=== PATIENT | female | born 1935 | race Caucasian/White ===

== ENCOUNTER 2017-07-06 08:06 | Day surgery (SDC) | payer MEDICARE, OTHER ==
[2017-07-05 12:19] LABS: BASOPHILS # (AUTO) 0.1 X10'3 (0-0.2); BASOPHILS % (AUTO) 0.9 % (0-1); EOSINOPHILS # (AUTO) 0.2 X10'3 (0-0.9); EOSINOPHILS % (AUTO) 3.6 % (0-6); HEMATOCRIT 38.1 % (35.0-45.0); HEMOGLOBIN 13.1 g/dl (12.0-16.0); LYMPHOCYTES # (AUTO) 1.9 X10'3 (1.1-4.8); LYMPHOCYTES % (AUTO) 33.7 % (21-51); MEAN CORPUSCULAR HEMOGLOBIN 33.6 PG (27.0-31.0); MEAN CORPUSCULAR HGB CONC 34.4 % (33.0-36.5); MEAN CORPUSCULAR VOLUME 97.8 FL (78-98); MEAN PLATELET VOLUME 7.8 FL (7.4-10.4); MONOCYTES # (AUTO) 0.5 X10'3 (0-0.9); MONOCYTES % (AUTO) 8.6 % (2-12); NEUTROPHILS % (AUTO) 53.2 % (42-75); PLATELET COUNT 202 X10'3 (140-440); RED CELL DISTRIBUTION WIDTH 13.7 % (11.5-14.5); WHITE BLOOD COUNT 5.7 X10'3 (4.5-11.0)
[2017-07-05 12:29] LABS: ALBUMIN 3.8 G/DL (3.4-5.0); ANION GAP 9 (8-16); BLOOD UREA NITROGEN 22 MG/DL (7-18); CALCIUM 8.6 MG/DL (8.5-10.1); CHLORIDE 102 MMOL/L (99-107); CREATININE 1.05 MG/DL (0.40-0.90); GLUCOSE 75 MG/DL (70-104); POTASSIUM 4.6 MMOL/L (3.5-5.1); SODIUM 137 MMOL/L (135-145); TOTAL CARBON DIOXIDE 25.7 MMOL/L (24-32); eGFR 50 ML/MIN
[2017-07-05 12:43] LABS: INR 1.1 INR; PROTHROMBIN TIME 10.9 SECONDS (9.0-12.0)
[~2017-07-06] VITALS: Ht 165.1 cm; Wt 92.4 kg
[2017-07-06] VITALS (17 sets, daily range): BP systolic 126–168; BP diastolic 54–75
[~2017-07-06 08:06] MED LIST: ACET-75 PO; ASPI-529 PO; BUPR150T6 PO; CARV3.12 PO; ESCI10TA54 PO; FLEC100T2 PO; LISI1TAB11 PO; LORA0.5T PO; RIVA20TA PO
[2017-07-06] MEDS ORDERED: atropine 0.1mg/ml 10ml syringe IV ONE (08:35)
[2017-07-06] MEDS ORDERED: amiodarone in dextrose, iso-osm 150mg/100ml bag IV ONE (08:35)
[2017-07-06] MEDS ORDERED: CYAN100070 PO (08:35)
[2017-07-06] MEDS ORDERED: morphine 2 MG/ML inj. syringe IV ONE ×2 (08:35→08:55)
[2017-07-06] MEDS ORDERED: LISI1TAB9 PO (08:35)
[2017-07-06] MEDS ORDERED: normal saline 1000ml 1,000 ML IV SCH (08:35)
[2017-07-06] MEDS ORDERED: mega red (08:35)
[2017-07-06] MEDS ORDERED: AMIO200T57 PO (08:35)
[2017-07-06] MEDS ORDERED: diphenhydrAMINE 25mg capsule PO ONE (08:35)
[2017-07-06] MEDS ORDERED: LORazepam 0.5 MG tablet PO ONE (08:35)
[2017-07-06] MEDS ORDERED: morphine 8mg/ml inj. syringe IV ONE (08:55)
[2017-07-06] MEDS ORDERED: MIDAZolam 1mg/ml 10ml vial IV ONE (09:00)
[2017-07-06] MEDS ORDERED: MIDAZolam 5mg/ml 2ml vial IV ONE (09:20)
== END 2017-07-06 13:20 | disposition home or self-care (01) ==
LOC: SSTAY O 08:06
PROVIDERS: ATTEND Internal Medicine Cardiovascular Disease
DX: I48.91 Unspecified atrial fibrillation (principal); I10 Essential (primary) hypertension; G47.33 Obstructive sleep apnea (adult) (pediatric); J44.9 Chronic obstructive pulmonary disease, unspecified; E66.3 Overweight; Z88.2 Allergy status to sulfonamides; Z90.710 Acquired absence of both cervix and uterus; Z98.890 Other specified postprocedural states; Z93.3 Colostomy status; Z87.891 Personal history of nicotine dependence
CPT/HCPCS: 36415; 80048; 85025; 85610; 92960; 93005; J2250; J2270; J7030; Q0163; A4620; J0282; J0461

== ENCOUNTER 2017-07-31 14:13 | Emergency (ER) | payer MEDICARE, OTHER ==
[~2017-07-31] VITALS: Ht 165.1 cm; Wt 85.5 kg
[~2017-07-31 14:13] MED LIST changes: +AMIO200T57 PO; +CYAN100070 PO; -LISI1TAB11 PO; +LISI1TAB9 PO; +mega red
[2017-07-31 17:05] VITALS: BP 124/71
== END 2017-07-31 17:14 | disposition home or self-care (01) ==
LOC: ER 14:13
DX: M54.2 Cervicalgia (principal); R51 Headache; Z79.01 Long term (current) use of anticoagulants; Z88.2 Allergy status to sulfonamides; Z79.82 Long term (current) use of aspirin; Z79.899 Other long term (current) drug therapy; V49.88XA Car occupant (driver) (passenger) injured in other specified transport accidents, initial encounter; Y93.89 Activity, other specified; Y92.413 State road as the place of occurrence of the external cause; Y99.9 Unspecified external cause status
CPT/HCPCS: 70450; 72040; 99284

== ENCOUNTER 2017-09-07 12:28 | Outpatient (CLI) | payer MEDICARE, BC | END 2017-09-07 23:59 | disposition home or self-care (01) | LOC: RT 12:28 | PROVIDERS: ATTEND Internal Medicine Cardiovascular Disease | DX: Z51.81 Encounter for therapeutic drug level monitoring (principal); J90 Pleural effusion, not elsewhere classified; R06.09 Other forms of dyspnea; F17.200 Nicotine dependence, unspecified, uncomplicated; I10 Essential (primary) hypertension; Z79.899 Other long term (current) drug therapy; Z85.038 Personal history of other malignant neoplasm of large intestine | CPT/HCPCS: 71046; 85018; 94010; 94727; 94729 ==

== ENCOUNTER 2019-04-04 12:51 | Outpatient (CLI) | payer MEDICARE, OTHER ==
[~2019-04-04 12:51] MED LIST changes: +AMIO200T54 PO; -AMIO200T57 PO; +LISI1TAB32 PO; -LISI1TAB9 PO
[2019-04-04 13:16] LABS: TOTAL HEMOGLOBIN 13.6 G/dl (12.0-16.0)
== END 2019-04-04 23:59 | disposition home or self-care (01) ==
LOC: RT 12:51
PROVIDERS: ATTEND Internal Medicine Cardiovascular Disease
DX: J44.9 Chronic obstructive pulmonary disease, unspecified (principal); R59.0 Localized enlarged lymph nodes; I10 Essential (primary) hypertension; Z79.899 Other long term (current) drug therapy; Z87.891 Personal history of nicotine dependence
CPT/HCPCS: 71046; 85018; 94010; 94727; 94729

== ENCOUNTER 2019-05-18 05:41 | Day surgery (SDC) | payer MEDICARE, OTHER ==
[2019-05-18] VITALS (26 sets, daily range): BP systolic 148–197; BP diastolic 56–135
[~2019-05-18] VITALS: Ht 162.6 cm; Wt 89.0 kg
[2019-05-18] MEDS ORDERED: morphine 10mg/ml inj. IM ONE (06:20)
[2019-05-18] MEDS ORDERED: CHOL400T14 PO (06:45)
[2019-05-18] MEDS ORDERED: SELE200T25 PO (06:45)
[2019-05-18] MEDS ORDERED: LISI-600 PO (06:45)
[2019-05-18] MEDS ORDERED: CYAN500T63 PO (06:46)
[2019-05-18 06:49] LABS: EOSINOPHILS # (AUTO) 0.2 X10'3 (0-0.9); EOSINOPHILS % (AUTO) 4.6 % (0-6); HEMATOCRIT 34.1 % (35.0-45.0); HEMOGLOBIN 11.6 g/dl (12.0-16.0); LYMPHOCYTES # (AUTO) 1.3 X10'3 (1.1-4.8); LYMPHOCYTES % (AUTO) 26.6 % (21-51); MEAN CORPUSCULAR HEMOGLOBIN 33.5 PG (27.0-31.0); MEAN CORPUSCULAR HGB CONC 34.1 g/dL (33.0-36.5); MEAN CORPUSCULAR VOLUME 98.3 FL (78-98); MEAN PLATELET VOLUME 7.7 FL (7.4-10.4); MONOCYTES # (AUTO) 0.5 X10'3 (0-0.9); MONOCYTES % (AUTO) 9.7 % (2-12); NEUTROPHILS # (AUTO) 2.8 X10'3 (1.8-7.7); NEUTROPHILS % (AUTO) 58.1 % (42-75); PLATELET COUNT 259 X10'3 (140-440); RED BLOOD COUNT 3.47 X10'6 (4.20-5.60); RED CELL DISTRIBUTION WIDTH 12.9 % (11.5-14.5); WHITE BLOOD COUNT 4.9 X10'3 (4.5-11.0)
[2019-05-18] MEDS ORDERED: MIDAZolam 1mg/ml 10ml vial IV ONE (07:25)
[2019-05-18] MEDS ORDERED: MIDAZolam 5mg/ml 2ml vial IV ONE (07:25)
[2019-05-18] MEDS ORDERED: LIDOCAINE 4% (40MG/ML) topical solution 50ml **BRONCH ONLY ONE (07:38)
[2019-05-18] MEDS ORDERED: lidocaine 2% viscous 15 ML cup ***bronch room only MM ONE (07:38)
[2019-05-18] MEDS ORDERED: phenylephrine 1% Nasal spray (extra-strength) 15 ML bottle **bronch room NS ONE (07:38)
== END 2019-05-18 13:10 | disposition home or self-care (01) ==
LOC: GI LAB 05:41
PROVIDERS: ATTEND Internal Medicine Pulmonary Disease
DX: R91.8 Other nonspecific abnormal finding of lung field (principal); C34.01 Malignant neoplasm of right main bronchus; I10 Essential (primary) hypertension; E78.00 Pure hypercholesterolemia, unspecified; I48.0 Paroxysmal atrial fibrillation; Z90.710 Acquired absence of both cervix and uterus; Z98.890 Other specified postprocedural states; Z90.49 Acquired absence of other specified parts of digestive tract; Z88.2 Allergy status to sulfonamides; Z88.8 Allergy status to other drugs, medicaments and biological substances; Z87.891 Personal history of nicotine dependence
CPT/HCPCS: 31629; 36415; 82378; 85025; 94640; 94760; J2250; J2270; 31622; 31628; 76000; 76499; 88108; 88173; 88305

== ENCOUNTER 2019-09-24 16:34 | Emergency (ER) | payer MEDICARE, OTHER ==
[~2019-09-24] VITALS: Ht 162.6 cm; Wt 82.0 kg
[~2019-09-24 16:34] MED LIST changes: -ACET-75 PO; -AMIO200T54 PO; +AMIO200T62 PO; +CHOL400T14 PO; -CYAN100070 PO; +CYAN500T63 PO; -ESCI10TA54 PO; -FLEC100T2 PO; +LISI-600 PO; -LISI1TAB32 PO; -LORA0.5T PO; +SELE200T25 PO
--- NOTE | 2019-09-24 16:45 | NUR ---
pt daughter in laws contact information: Ju Chahal [phone]
[2019-09-24] MEDS ORDERED: iohexol 350MG/ML 100ml bottle IV ONE (18:43)
[2019-09-24 18:46] LABS: BASOPHILS % (AUTO) 0.5 % (0-1); EOSINOPHILS % (AUTO) 0.4 % (0-6); HEMATOCRIT 32.5 % (35.0-45.0); HEMOGLOBIN 10.6 g/dl (12.0-16.0); LYMPHOCYTES # (AUTO) 0.3 X10'3 (1.1-4.8); LYMPHOCYTES % (AUTO) 7.1 % (21-51); MEAN CORPUSCULAR HGB CONC 32.7 g/dL (33.0-36.5); MEAN CORPUSCULAR VOLUME 97.9 FL (78-98); MEAN PLATELET VOLUME 7.6 FL (7.4-10.4); MONOCYTES # (AUTO) 0.5 X10'3 (0-0.9); MONOCYTES % (AUTO) 10.9 % (2-12); NEUTROPHILS # (AUTO) 3.8 X10'3 (1.8-7.7); NEUTROPHILS % (AUTO) 81.1 % (42-75); PLATELET COUNT 262 X10'3 (140-440); RED BLOOD COUNT 3.32 X10'6 (4.20-5.60); WHITE BLOOD COUNT 4.7 X10'3 (4.5-11.0)
[2019-09-24 18:54] LABS: PARTIAL THROMBOPLASTIN TIME 37 SECONDS (22-32)
[2019-09-24 18:56] LABS: ALANINE AMINOTRANSFERASE 17 U/L (12-78); ALBUMIN 2.5 G/DL (3.4-5.0); ALBUMIN/GLOBULIN RATIO 0.6 (1.1-1.5); ALKALINE PHOSPHATASE 67 IU/L (46-116); ANION GAP 10 (8-16); ASPARTATE AMINO TRANSFERASE 24 U/L (10-37); BILIRUBIN,TOTAL 0.7 MG/DL (0.1-1.0); BLOOD UREA NITROGEN 15 MG/DL (7-18); BUN/CREATININE RATIO 19.2 (6.6-38.0); CALCIUM 8.9 MG/DL (8.5-10.1); CHLORIDE 102 MMOL/L (99-107); CREATININE 0.78 MG/DL (0.40-0.90); GLUCOSE 101 MG/DL (70-104); LIPASE 88 U/L (73-393); POTASSIUM 3.4 MMOL/L (3.5-5.1); SODIUM 140 MMOL/L (135-145); TOTAL CARBON DIOXIDE 28.5 MMOL/L (24-32); eGFR 70 ML/MIN
[2019-09-24 20:52] VITALS: BP 159/77
== END 2019-09-24 20:55 | disposition home or self-care (01) ==
LOC: ER 16:35
DX: R06.02 Shortness of breath (principal); Z20.828 Contact with and (suspected) exposure to other viral communicable diseases; I48.91 Unspecified atrial fibrillation; R05 Cough; R53.1 Weakness; Z88.2 Allergy status to sulfonamides; Z88.8 Allergy status to other drugs, medicaments and biological substances; Z79.82 Long term (current) use of aspirin; Z79.01 Long term (current) use of anticoagulants; Z79.899 Other long term (current) drug therapy
CPT/HCPCS: 36415; 71275; 74177; 80053; 83690; 84484; 85025; 85610; 85730; 87635; 93005; 99285; Q9967

== ENCOUNTER 2020-05-06 05:52 | Day surgery (SDC) | payer MEDICARE, OTHER ==
[2020-05-05 12:43] LABS: BASOPHILS % (AUTO) 0.5 % (0-1); EOSINOPHILS % (AUTO) 0.5 % (0-6); HEMATOCRIT 35.6 % (35.0-45.0); HEMOGLOBIN 12.2 g/dl (12.0-16.0); LYMPHOCYTES # (AUTO) 1.1 X10'3 (1.1-4.8); LYMPHOCYTES % (AUTO) 24.9 % (21-51); MEAN CORPUSCULAR HEMOGLOBIN 35.3 PG (27.0-31.0); MEAN CORPUSCULAR HGB CONC 34.2 g/dL (33.0-36.5); MEAN PLATELET VOLUME 7.6 FL (7.4-10.4); MONOCYTES # (AUTO) 0.5 X10'3 (0-0.9); MONOCYTES % (AUTO) 10.6 % (2-12); NEUTROPHILS # (AUTO) 2.9 X10'3 (1.8-7.7); NEUTROPHILS % (AUTO) 63.5 % (42-75); PLATELET COUNT 225 X10'3 (140-440); RED BLOOD COUNT 3.46 X10'6 (4.20-5.60); RED CELL DISTRIBUTION WIDTH 14.2 % (11.5-14.5); WHITE BLOOD COUNT 4.6 X10'3 (4.5-11.0)
[2020-05-05 12:52] LABS: ALBUMIN 3.8 G/DL (3.4-5.0); ANION GAP 10 (8-16); BLOOD UREA NITROGEN 27 MG/DL (7-18); BUN/CREATININE RATIO 24.8 (6.6-38.0); CALCIUM 9.3 MG/DL (8.5-10.1); CHLORIDE 108 MMOL/L (99-107); CREATININE 1.09 MG/DL (0.40-0.90); GLUCOSE 100 MG/DL (70-104); PARTIAL THROMBOPLASTIN TIME 22 SECONDS (22-32); SODIUM 145 MMOL/L (135-145); TOTAL CARBON DIOXIDE 27.1 MMOL/L (24-32); eGFR 48 ML/MIN
[~2020-05-06] VITALS: Ht 165.1 cm; Wt 78.1 kg
[2020-05-06] VITALS (11 sets, daily range): BP systolic 133–215; BP diastolic 45–83
[~2020-05-06 05:52] MED LIST changes: -CYAN500T63 PO; +CYAN500T64 PO
[2020-05-06] MEDS ORDERED: ceFAZolin 2gm in dextrose, iso 50 ML IV ONE (06:25)
[2020-05-06] MEDS ORDERED: ONDA4TAB6 PO (06:59)
[2020-05-06] MEDS: normal saline 1000ml 1,000 ML IV SCH ×2 (07:03→11:04)
[2020-05-06] MEDS ORDERED: midazolam 2 mg/2 ml injection ONE ×2 (07:18→08:33)
[2020-05-06] MEDS ORDERED: LIDOcaine 1% W/epiNEPHrine 1:100,000 20ml vial ONE (07:18)
[2020-05-06] MEDS ORDERED: fentaNYL/PF 50MCG/1 ML 2ML syringe ONE ×2 (07:18→08:33)
[2020-05-06] MEDS ORDERED: ceFAZolin 1000mg inj ONE (07:18)
[2020-05-06] MEDS ORDERED: diphenhydrAMINE 50 mg/ml inj ONE (08:28)
[2020-05-06] MEDS ORDERED: vancomycin/NS 1 GM ADD-VANTAGE 250 ML X 1 DOSE IV ONE (11:00)
--- NOTE | 2020-05-06 11:26 | NUR ---
Problems reprioritized. Patient report given, questions answered & plan of care reviewed with Alie TRIVEDI.
== END 2020-05-06 16:00 | disposition home or self-care (01) ==
LOC: SSTAY O 05:52
PROVIDERS: ATTEND Internal Medicine Cardiovascular Disease
DX: I49.5 Sick sinus syndrome (principal); I44.30 Unspecified atrioventricular block; I10 Essential (primary) hypertension; E78.5 Hyperlipidemia, unspecified; I48.0 Paroxysmal atrial fibrillation; Z79.82 Long term (current) use of aspirin; Z79.899 Other long term (current) drug therapy
CPT/HCPCS: 33208; 36415; 71046; 80048; 85025; 85610; 85730; 93005; 99152; 99153; C1785; C1894; C1898; J0690; J1200; J2250; J3010; J3370; J7030; A4565; A4620; A6449

== ENCOUNTER 2020-11-18 09:08 | Outpatient (CLI) | payer MEDICARE, OTHER ==
[~2020-11-18] VITALS: Ht 160 cm; Wt 80.5 kg
[~2020-11-18 09:08] MED LIST changes: +BUPR150T23 PO; -BUPR150T6 PO; -CARV3.12 PO; -CYAN500T64 PO; +CYAN500T71 PO; -LISI-600 PO; +ONDA4TAB6 PO; -SELE200T25 PO
[2020-11-18 10:48] VITALS: BP 151/62
[2020-11-18 10:59] VITALS: BP 157/55
[2020-11-18 11:00] VITALS: BP 151/50
[2020-11-18] MEDS ORDERED: nitroGLYCERIN 0.4mg SUBLingual tab SL PRN (11:00)
[2020-11-18] MEDS ORDERED: metoprolol tartrate 1mg/ml inj IV PRN (11:00)
[2020-11-18] MEDS ORDERED: aminophylline 250mg/10ml inj. IV PRN (11:00)
[2020-11-18] MEDS ORDERED: normal saline 500ml IV soln 500 ML IV ONE (11:00)
[2020-11-18] MEDS ORDERED: regadenoson 0.4mg/5ml syringe IV ONE (11:00)
[2020-11-18 11:01] VITALS: BP 154/57
[2020-11-18 11:02] VITALS: BP 151/56
[2020-11-18 11:03] VITALS: BP 160/51
== END 2020-11-18 23:59 | disposition home or self-care (01) ==
LOC: RAD 09:08
PROVIDERS: ATTEND Internal Medicine Cardiovascular Disease
DX: I48.0 Paroxysmal atrial fibrillation (principal)
CPT/HCPCS: 78452; 93017; A9500; J0280; J2785; J7040

== ENCOUNTER → 2020-12-17 | Day surgery (SDC) | payer MEDICARE, OTHER ==
[2020-12-10 17:06] LABS: BASOPHILS % (AUTO) 0.7 % (0-1); EOSINOPHILS # (AUTO) 0.3 X10'3 (0-0.9); LYMPHOCYTES # (AUTO) 1.3 X10'3 (1.1-4.8); LYMPHOCYTES % (AUTO) 24.7 % (21-51); MEAN CORPUSCULAR HEMOGLOBIN 34.8 PG (27.0-31.0); MEAN CORPUSCULAR HGB CONC 34.1 g/dL (33.0-36.5); MEAN CORPUSCULAR VOLUME 102.1 FL (78-98); MEAN PLATELET VOLUME 7.4 FL (7.4-10.4); MONOCYTES # (AUTO) 0.5 X10'3 (0-0.9); NEUTROPHILS # (AUTO) 3.2 X10'3 (1.8-7.7); NEUTROPHILS % (AUTO) 60.6 % (42-75); PRE OP HEMATOCRIT 33.9 % (35.0-45.0); PRE OP HEMOGLOBIN 11.6 g/dL (12.0-16.0); PRE OP PLATELET COUNT 208 X10'3 (140-440); RED BLOOD COUNT 3.32 X10'6 (4.20-5.60); RED CELL DISTRIBUTION WIDTH 13.9 % (11.5-14.5)
[2020-12-10 17:11] LABS: CLARITY,URINE SLIGHTLY CLOUDY (Clear); COLOR,URINE YELLOW (Yellow); GLUCOSE, URINE NEGATIVE (Neg); KETONES,URINE 15 mg/dl (Neg); LEUKOCYTE ESTERASE ,URINE TRACE (Neg); NITRITES, URINE NEGATIVE (Neg); OCCULT BLOOD,URINE NEGATIVE (Neg); PROTEIN,URINE NEGATIVE (Neg)
[2020-12-10 17:15] LABS: UA COLLECTION TYPE CLN CATCH MIDSTREAM
[2020-12-10 17:18] LABS: PRE OP PROTIME 10.4 SECONDS (9.0-12.0)
[2020-12-10 17:20] LABS: ALBUMIN 3.5 G/DL (3.4-5.0); ALKALINE PHOSPHATASE 43 IU/L (46-116); BLOOD UREA NITROGEN 22 MG/DL (7-18); BUN/CREATININE RATIO 14.3 (6.6-38.0); CALCIUM 8.3 MG/DL (8.5-10.1); CHLORIDE 109 MMOL/L (99-107); CREATININE 1.54 MG/DL (0.40-0.90); PRE OP ALT 22 U/L (30-65); PRE OP ANION GAP 7 (8-16); PRE OP AST 17 U/L (10-37); PRE OP BILIRUB, TOTAL 0.3 MG/DL (0.0-1.0); PRE OP GLUCOSE 95 MG/DL (70-104); PRE OP POTASSIUM 4.6 MMOL/L (3.4-5.1); PRE OP SODIUM 145 MMOL/L (135-145); TOTAL CARBON DIOXIDE 29.1 MMOL/L (24-32); TOTAL PROTEIN 6.9 G/DL (6.4-8.2); eGFR 32 ML/MIN
[2020-12-10 17:21] LABS: HYALINE CASTS 0-3 /LPF (NEGATIVE); MUCUS STRANDS FEW /LPF (Neg); SQUAMOUS EPITHELIAL CELL,UR MODERATE /LPF (FEW)
[2020-12-10 17:22] LABS: BACTERIA,URINE 1+ /HPF (Neg); RBC,URINE 0-2 /HPF (0-2); WBC,URINE 0-4 /HPF (0-4)
[2020-12-17] VITALS (13 sets, daily range): BP systolic 130–172; BP diastolic 55–89
[~2020-12-17] VITALS: Ht 160 cm; Wt 81.8 kg
[~2020-12-17] MED LIST changes: +ASCO500C17 PO; -ASPI-529 PO; +BUPIVAcaine 0.5% inj/PF 30 ML ONE; +CARV6.253 PO; +DOCUMENT DATE & TIME OF BETA-BLOCKER PO ONE; +HYDROcodone/acetaminophen 5mg/325mg tablet PO ONE; +LIDOcaine 2% (20mg/ml) 5ml vial ONE; +LISI10TA27 PO; +LORA-269 PO; -ONDA4TAB6 PO; +VIRTUSSIN PO; +cefazolin/dext.iso 2gm/100ml IV ONE; +dexamethasone sod phosphate 4mg/ml inj. ONE; +famotidine 20mg tablet PO ONE; +fentaNYL/PF 50MCG/1 ML 2ML syringe ONE; +hydrALAZINE 20mg/ml inj. IV PRN; +morphine 2 MG/ML inj. syringe IV PRN; +ondansetron/PF 4mg/2ml inj IV PRN; +ondansetron/PF 4mg/2ml inj ONE; +propofol inj 20 ML IV ONE; +ringers solution, lacted 1,000 ML IV SCH; +sevoflurane 250ml liquid IH ONE
[2020-12-17 11:33] LABS: PRE OP PARTIAL THROMB. TIME 23 SECONDS (22-32)
--- NOTE | 2020-12-17 15:14 | NUR ---
Received from OR via [facility], accompanied by Anesthesiologist DR TRUJILLO and report given by Anesthesiologist. PT AWAKE, DENIES PAIN, IS SLIGHTLY ANXIOUS AND TALKATIVE, LEFT NECK INCISION W/DERMABOND AND MEDICAL TAPE COVERING CDI, RIGHT LOWER ABDOMEN W/INCISION W/DERMABOND, TAGADERM AND MEDICAL TAPE CDI, LEFT HIP W/INCISION W/DERMABOND, TAGADERM AND MEDICAL TAPE COVERING CDI. Addendum: 12/17/20 at 1619 by Wilma Jonas RN Amended: Links added.
[2020-12-17] MEDS: morphine 2 MG/ML inj. syringe IV PRN ×2 (15:39→16:22)
--- NOTE | 2020-12-17 17:24 | NUR ---
PT UP AND ABLE TO AMBULATE SAFELY, VOIDED, TOLERATES PO FLUIDS, PAIN TOLERABLE. D/C INSTRUCTIONS GIVEN AND GONE OVER W/PT WHO VERBALIZED UNDERSTANDING. PT D/CD TO HOME VIA W/C TO PRIVATE VEHICLE W/O INCIDENT. Addendum: 12/17/20 at 1751 by Wilma Jonas RN Amended: Links added.
== END | disposition home or self-care (01) ==
LOC: SSTAY O 08:59
PROVIDERS: ATTEND Surgery
DX: C76.52 Malignant neoplasm of left lower limb (principal); C76.2 Malignant neoplasm of abdomen; D23.4 Other benign neoplasm of skin of scalp and neck; L53.8 Other specified erythematous conditions; I48.20 Chronic atrial fibrillation, unspecified; Z79.01 Long term (current) use of anticoagulants; Z79.899 Other long term (current) drug therapy; Z87.891 Personal history of nicotine dependence; Z98.890 Other specified postprocedural states; Z85.038 Personal history of other malignant neoplasm of large intestine; F41.9 Anxiety disorder, unspecified; E78.5 Hyperlipidemia, unspecified; E66.9 Obesity, unspecified; Z82.49 Family history of ischemic heart disease and other diseases of the circulatory system; Z96.651 Presence of right artificial knee joint; Z88.2 Allergy status to sulfonamides
CPT/HCPCS: 11421; 11606; 12034; 12041; 36415; 71046; 80053; 81001; 82948; 85025; 85610; 85730; 87077; 87088; 87186; 88341; J1100; J2001; J2270; J2405; J2704; J3010; Z7506; Z7508; Z7512; 88304; 88307; 88342; A4215; A4618; A6258; A7000; J7120

== ENCOUNTER 2021-03-25 11:37 | Day surgery (SDC) | payer MEDICARE, OTHER ==
[2021-03-20 12:00] LABS: EOSINOPHILS # (AUTO) 0.1 X10'3 (0-0.9); EOSINOPHILS % (AUTO) 3.1 % (0-6); LYMPHOCYTES % (AUTO) 29.2 % (21-51); MEAN CORPUSCULAR HEMOGLOBIN 33.5 PG (27.0-31.0); MEAN CORPUSCULAR HGB CONC 33.2 g/dL (33.0-36.5); MEAN CORPUSCULAR VOLUME 100.8 FL (78-98); MONOCYTES # (AUTO) 0.4 X10'3 (0-0.9); NEUTROPHILS # (AUTO) 1.9 X10'3 (1.8-7.7); NEUTROPHILS % (AUTO) 54.7 % (42-75); PRE OP HEMATOCRIT 33.6 % (35.0-45.0); PRE OP HEMOGLOBIN 11.2 g/dL (12.0-16.0); PRE OP PLATELET COUNT 224 X10'3 (140-440); RED BLOOD COUNT 3.33 X10'6 (4.20-5.60); RED CELL DISTRIBUTION WIDTH 13.4 % (11.5-14.5)
[2021-03-20 12:09] LABS: PARTIAL THROMBOPLASTIN TIME 26 SECONDS (22-32)
[2021-03-20 12:11] LABS: ALBUMIN 3.6 G/DL (3.4-5.0); ALBUMIN/GLOBULIN RATIO 0.9 (1.1-1.5); ALKALINE PHOSPHATASE 49 IU/L (46-116); BLOOD UREA NITROGEN 15 MG/DL (7-18); BUN/CREATININE RATIO 13.8 (6.6-38.0); CHLORIDE 105 MMOL/L (99-107); CREATININE 1.09 MG/DL (0.40-0.90); PRE OP ALT 20 U/L (30-65); PRE OP ANION GAP 8 (8-16); PRE OP AST 22 U/L (10-37); PRE OP BILIRUB, TOTAL 0.5 MG/DL (0.0-1.0); PRE OP GLUCOSE 99 MG/DL (70-104); PRE OP POTASSIUM 4.1 MMOL/L (3.4-5.1); PRE OP SODIUM 139 MMOL/L (135-145); TOTAL CARBON DIOXIDE 26.5 MMOL/L (24-32); TOTAL PROTEIN 7.5 G/DL (6.4-8.2); eGFR 48 ML/MIN
[~2021-03-25] VITALS: Ht 162.6 cm; Wt 81.8 kg
[~2021-03-25 11:37] MED LIST changes: -ASCO500C17 PO; -BUPIVAcaine 0.5% inj/PF 30 ML ONE; -DOCUMENT DATE & TIME OF BETA-BLOCKER PO ONE; -HYDROcodone/acetaminophen 5mg/325mg tablet PO ONE; -LIDOcaine 2% (20mg/ml) 5ml vial ONE; -LORA-269 PO; -VIRTUSSIN PO; -cefazolin/dext.iso 2gm/100ml IV ONE; +cefazolin/dext.iso 2gm/50ml 50 ML IV ONE; -dexamethasone sod phosphate 4mg/ml inj. ONE; -fentaNYL/PF 50MCG/1 ML 2ML syringe ONE; -hydrALAZINE 20mg/ml inj. IV PRN; -mega red; -morphine 2 MG/ML inj. syringe IV PRN; -ondansetron/PF 4mg/2ml inj IV PRN; -ondansetron/PF 4mg/2ml inj ONE; -propofol inj 20 ML IV ONE; -sevoflurane 250ml liquid IH ONE
[2021-03-25 12:45] VITALS: BP 181/82
[2021-03-25 13:08] LABS: CLARITY,URINE CLEAR (Clear); COLOR,URINE YELLOW (Yellow); GLUCOSE, URINE NEGATIVE (Neg); KETONES,URINE NEGATIVE (Neg); LEUKOCYTE ESTERASE ,URINE NEGATIVE (Neg); NITRITES, URINE NEGATIVE (Neg); OCCULT BLOOD,URINE NEGATIVE (Neg); PH,URINE 6.5 (4.8-8.0); PROTEIN,URINE NEGATIVE (Neg); UA COLLECTION TYPE VOIDED; UROBILINOGEN,URINE 0.2 E.U/dL (0.2-1.0)
[2021-03-25] MEDS ORDERED: BUPIVAcaine/PF 2.5 mg/ml (0.25%) 30ml vial ONE (15:04)
[2021-03-25] MEDS ORDERED: LIDOCAINE 1%/EPI 1:100,000 inj. 10 ML multi-dose vial ONE (15:04)
[2021-03-25] MEDS ORDERED: morphine 2 MG/ML inj. syringe IV PRN (16:15)
[2021-03-25] MEDS ORDERED: ondansetron/PF 4mg/2ml inj IV PRN (16:15)
[2021-03-25] MEDS ORDERED: ringers solution, lacted 1,000 ML IV SCH (16:15)
[2021-03-25] MEDS ORDERED: morphine 4 MG/ML inj SYRINge IV PRN (16:15)
[2021-03-25] MEDS ORDERED: hydrALAZINE 20mg/ml inj. IV PRN (16:15)
[2021-03-25] MEDS ORDERED: labetalol 20mg/4ml (5mg/ml) syringe IV PRN (16:15)
[2021-03-25] MEDS ORDERED: fentaNYL/PF 50MCG/1 ML 2ML syringe IV PRN ×2 (16:15)
[2021-03-25] MEDS ORDERED: midazolam 1 mg/ML 2ml injection ONE (16:24)
[2021-03-25] MEDS ORDERED: fentaNYL/PF 50MCG/1 ML 2ML syringe ONE ×2 (16:24→17:01)
[2021-03-25] MEDS ORDERED: ketamine 50mg/5ml syringe ONE (16:25)
[2021-03-25] MEDS ORDERED: propofol inj 20 ML IV ONE (16:33)
[2021-03-25] MEDS ORDERED: LIDOcaine 1%/PF 5ML 10 MG/ML VIAL ONE (16:33)
[2021-03-25 17:17] VITALS: BP 161/75
--- NOTE | 2021-03-25 17:17 | NUR ---
ASSUME CARE PT AWAKE ALERT ON RA SAT 96% DENIES PAIN, IV TO R AC 20G PATIENT INTACT IVF INFUSING WITHOUT DIFF, DRESSING TO RIGHT LOWER QUAD OF THE ABD CDI, CONT TO MONITOR. Addendum: 03/25/21 at 1733 by Pepper Nazario RN Amended: Links added.
[2021-03-25 17:30] VITALS: BP 144/68
--- NOTE | 2021-03-25 17:33 | NUR ---
AWAKE SITTING UP IN BED DENIES PAIN VSS ALISSON POS NO OTHER CHANGES Addendum: 03/25/21 at 1734 by Pepper Nazario RN Amended: Links added.
--- NOTE | 2021-03-25 18:00 | NUR ---
PT AWAKE DENIES PAIN VSS NO DISTRESS ALISSON POS MEETS CRITERIA TO GO HOME RIDE CALLED DC INSTR GIVEN NO ?'S OR CONCERNS. Addendum: 03/25/21 at 1823 by Pepper Nazario RN Amended: Links added.
== END 2021-03-25 18:17 | disposition home or self-care (01) ==
LOC: PAS 11:37
PROVIDERS: ATTEND Surgery
DX: D49.2 Neoplasm of unspecified behavior of bone, soft tissue, and skin (principal); C79.89 Secondary malignant neoplasm of other specified sites; F41.9 Anxiety disorder, unspecified; I48.91 Unspecified atrial fibrillation; I10 Essential (primary) hypertension; E78.5 Hyperlipidemia, unspecified; F32.9 Major depressive disorder, single episode, unspecified; E66.9 Obesity, unspecified; Z68.31 Body mass index [BMI] 31.0-31.9, adult; Z96.651 Presence of right artificial knee joint; Z95.0 Presence of cardiac pacemaker; Z87.891 Personal history of nicotine dependence; Z20.822 Contact with and (suspected) exposure to COVID-19; Z79.01 Long term (current) use of anticoagulants; Z79.899 Other long term (current) drug therapy; Z88.5 Allergy status to narcotic agent; Z88.2 Allergy status to sulfonamides; Z91.09 Other allergy status, other than to drugs and biological substances; Z85.038 Personal history of other malignant neoplasm of large intestine; Z85.118 Personal history of other malignant neoplasm of bronchus and lung; Z90.49 Acquired absence of other specified parts of digestive tract; Z90.710 Acquired absence of both cervix and uterus; Z98.890 Other specified postprocedural states
CPT/HCPCS: 22903; 36415; 80053; 81003; 82948; 85025; 85610; 85730; J2250; J2704; J3010; J3490; U0003; U0005; Z7506; Z7512; 88305; A4615; A4618; A7000; J7120

== ENCOUNTER 2021-07-01 05:28 | Day surgery (SDC) | payer MEDICARE, OTHER ==
[2021-06-18 16:34] LABS: BASOPHILS % (AUTO) 0.3 % (0-1); EOSINOPHILS # (AUTO) 0.1 X10'3 (0-0.9); EOSINOPHILS % (AUTO) 1.3 % (0-6); LYMPHOCYTES # (AUTO) 0.9 X10'3 (1.1-4.8); LYMPHOCYTES % (AUTO) 22.4 % (21-51); MEAN CORPUSCULAR HEMOGLOBIN 33.2 PG (27.0-31.0); MEAN CORPUSCULAR HGB CONC 33.5 g/dL (33.0-36.5); MONOCYTES # (AUTO) 0.4 X10'3 (0-0.9); MONOCYTES % (AUTO) 9.5 % (2-12); NEUTROPHILS # (AUTO) 2.6 X10'3 (1.8-7.7); NEUTROPHILS % (AUTO) 66.5 % (42-75); PRE OP HEMATOCRIT 29.9 % (35.0-45.0); PRE OP PLATELET COUNT 186 X10'3 (140-440); RED BLOOD COUNT 3.02 X10'6 (4.20-5.60); RED CELL DISTRIBUTION WIDTH 14.9 % (11.5-14.5)
[2021-06-18 17:01] LABS: ALBUMIN 3.2 G/DL (3.4-5.0); ALKALINE PHOSPHATASE 44 IU/L (46-116); BLOOD UREA NITROGEN 14 MG/DL (7-18); BUN/CREATININE RATIO 17.1 (6.6-38.0); CALCIUM 8.4 MG/DL (8.5-10.1); CHLORIDE 107 MMOL/L (99-107); CREATININE 0.82 MG/DL (0.40-0.90); PRE OP ALT 20 U/L (30-65); PRE OP ANION GAP 10 (8-16); PRE OP AST 25 U/L (10-37); PRE OP BILIRUB, TOTAL 0.3 MG/DL (0.0-1.0); PRE OP GLUCOSE 109 MG/DL (70-104); PRE OP POTASSIUM 4.1 MMOL/L (3.4-5.1); PRE OP SODIUM 144 MMOL/L (135-145); TOTAL CARBON DIOXIDE 27.3 MMOL/L (24-32); TOTAL PROTEIN 6.5 G/DL (6.4-8.2); eGFR 66 ML/MIN
[2021-07-01] VITALS (13 sets, daily range): BP systolic 134–185; BP diastolic 59–90
[~2021-07-01] VITALS: Ht 162.6 cm; Wt 84.2 kg
[~2021-07-01 05:28] MED LIST changes: +ASPI-611 PO; +BUPR-317 PO; -BUPR150T23 PO; +ESCI-8 PO; +LEVO50TA8 PO; +LISI5TAB22 PO; -cefazolin/dext.iso 2gm/50ml 50 ML IV ONE; -famotidine 20mg tablet PO ONE
[2021-07-01] MEDS ORDERED: cefazolin/dext.iso 2gm/50ml IV ONE (05:30)
[2021-07-01] MEDS ORDERED: famotidine 20mg tablet PO ONE (05:30)
[2021-07-01] MEDS ORDERED: DOCUMENT DATE & TIME OF BETA-BLOCKER PO ONE (05:30)
[2021-07-01] MEDS ORDERED: BUPIVAcaine 0.5% inj/PF 30 ML ONE (06:54)
[2021-07-01] MEDS ORDERED: midazolam 1 mg/ML 2ml injection ONE (07:31)
[2021-07-01] MEDS ORDERED: fentaNYL/PF 50MCG/1 ML 2ML syringe ONE (07:31)
[2021-07-01] MEDS ORDERED: propofol inj 20 ML IV ONE (07:32)
[2021-07-01] MEDS ORDERED: morphine 4 MG/ML inj SYRINge IV PRN (07:35)
[2021-07-01] MEDS ORDERED: ringers solution, lacted 1,000 ML IV SCH (07:35)
[2021-07-01] MEDS ORDERED: morphine 2 MG/ML inj. syringe IV PRN (07:35)
[2021-07-01] MEDS ORDERED: proCHLORperazine 10 MG/2 ml inj IV PRN (07:35)
[2021-07-01] MEDS ORDERED: meperidine/PF 25mg/ml syringe IV PRN ×3 (07:35)
[2021-07-01] MEDS ORDERED: ondansetron/PF 4mg/2ml inj IV PRN (07:35)
[2021-07-01] MEDS ORDERED: LIDOcaine 1%/PF 5ML 10 MG/ML VIAL ONE (07:38)
[2021-07-01] MEDS ORDERED: sevoflurane 250ml liquid IH ONE (07:38)
[2021-07-01 08:04] LABS: CLARITY,URINE CLOUDY (Clear); COLOR,URINE YELLOW (Yellow); GLUCOSE, URINE NEGATIVE (Neg); KETONES,URINE TRACE mg/dl (Neg); LEUKOCYTE ESTERASE ,URINE TRACE (Neg); NITRITES, URINE NEGATIVE (Neg); OCCULT BLOOD,URINE NEGATIVE (Neg); PH,URINE 5.5 (4.8-8.0); PROTEIN,URINE NEGATIVE (Neg); UROBILINOGEN,URINE 0.2 E.U/dL (0.2-1.0)
[2021-07-01 08:05] LABS: UA COLLECTION TYPE CLN CATCH MIDSTREAM
[2021-07-01] MEDS ORDERED: ondansetron/PF 4mg/2ml inj ONE (08:06)
[2021-07-01] MEDS ORDERED: dexamethasone sod phosphate 4mg/ml inj. ONE (08:06)
[2021-07-01 08:08] LABS: BACTERIA,URINE 2+ /HPF (Neg); HYALINE CASTS 0-3 /LPF (NEGATIVE); MUCUS STRANDS MANY /LPF (Neg); RBC,URINE NONE SEEN /HPF (0-2); SQUAMOUS EPITHELIAL CELL,UR MANY /LPF (FEW)
[2021-07-01] MEDS ORDERED: BUPIVAcaine 0.5% inj/PF 30 ml vial IJ ONE (09:14)
[2021-07-01] MEDS ORDERED: acetaminophen 1,000mg/100ml IV 100 ML IV ONE (09:20)
--- NOTE | 2021-07-01 09:34 | NUR ---
Received from OR via [facility], accompanied by Anesthesiologist SHANAE and report given by Anesthesiolgist. 10 LITER MASK, 2 GRANT DRAINS SEROUS SANGUNEOUS BLOODY, 3 ISLAND DRESSING SPOTTY - WILL CONTINUE TO REASSESS, 20 G LEFT HAND, 1 GRAM TYLENOL, IV FLUIDS LR 100ML/HR, VSS Addendum: 07/01/21 at 0967 by Emily Royal RN Amended: Links added.
[2021-07-01] MEDS ORDERED: enalaprilat dihydrate 2.5mg/2ml vial IV PRN (10:35)
--- NOTE | 2021-07-01 11:14 | NUR ---
ALL DISCHARGE CRITERIA HAS BEEN MET. VSS, PAIN AT A TOLERABLE LEVEL, VOIDING AND ABLE TO SAFELY AMBULATE AND TRANSFER SELF. IV TAKEN OUT WITHOUT ANY COMPLICATIONS. ALL DISCHARGE INSTRUCTIONS COVERED WITH PATIENT AND ALL QUESTIONS ANSWERED. PATIENT TAKEN OUT VIA WHEELCHAIR TO PERSONAL VEHICLE WHERE FAMILY/FRIEND DROVE PATIENT HOME. SPOKE TO DAUGHTER ANTWAN SHIKHA ABOUT GRANT DRAINS. PROVIDED TRIANGLE FOR DRAINS AND IS FOR BREATHING EXERCISE. Addendum: 07/01/21 at 1133 by Emily Royal RN Amended: Links added.
== END 2021-07-01 11:14 | disposition home or self-care (01) ==
LOC: PAS 05:28
PROVIDERS: ATTEND Surgery
DX: C79.2 Secondary malignant neoplasm of skin (principal); I10 Essential (primary) hypertension; F41.9 Anxiety disorder, unspecified; I48.20 Chronic atrial fibrillation, unspecified; E78.5 Hyperlipidemia, unspecified; E66.9 Obesity, unspecified; Z68.31 Body mass index [BMI] 31.0-31.9, adult; J44.9 Chronic obstructive pulmonary disease, unspecified; F32.A Depression, unspecified; Z96.651 Presence of right artificial knee joint; Z87.891 Personal history of nicotine dependence; Z79.899 Other long term (current) drug therapy; Z88.5 Allergy status to narcotic agent; Z88.2 Allergy status to sulfonamides; Z85.118 Personal history of other malignant neoplasm of bronchus and lung; Z95.0 Presence of cardiac pacemaker; Z85.038 Personal history of other malignant neoplasm of large intestine; Z98.890 Other specified postprocedural states; Z90.49 Acquired absence of other specified parts of digestive tract; Z90.710 Acquired absence of both cervix and uterus; Z20.822 Contact with and (suspected) exposure to COVID-19; Z82.49 Family history of ischemic heart disease and other diseases of the circulatory system
CPT/HCPCS: 11604; 11606; 36415; 80053; 81001; 82948; 85025; 88341; 88342; 93005; J0131; J0690; J1100; J2250; J2270; J2405; J2704; J3010; J3490; J7030; J7120; S0020; U0003; U0005; Z7506; Z7508; Z7512; 88305; 88307; 88333; A4618; A7000

== ENCOUNTER 2021-10-28 11:03 | Day surgery (SDC) | payer MEDICARE, OTHER ==
[2021-10-27 17:17] LABS: BASOPHILS % (AUTO) 0.7 % (0-1); EOSINOPHILS # (AUTO) 0.3 X10'3 (0-0.9); EOSINOPHILS % (AUTO) 4.1 % (0-6); LYMPHOCYTES # (AUTO) 0.8 X10'3 (1.1-4.8); LYMPHOCYTES % (AUTO) 13.1 % (21-51); MEAN CORPUSCULAR HEMOGLOBIN 31.1 PG (27.0-31.0); MEAN CORPUSCULAR HGB CONC 32.1 g/dL (33.0-36.5); MEAN CORPUSCULAR VOLUME 96.8 FL (78-98); MEAN PLATELET VOLUME 7.4 FL (7.4-10.4); MONOCYTES # (AUTO) 0.5 X10'3 (0-0.9); MONOCYTES % (AUTO) 7.7 % (2-12); NEUTROPHILS # (AUTO) 4.8 X10'3 (1.8-7.7); NEUTROPHILS % (AUTO) 74.4 % (42-75); PRE OP HEMATOCRIT 29.6 % (35.0-45.0); PRE OP PLATELET COUNT 325 X10'3 (140-440); RED BLOOD COUNT 3.06 X10'6 (4.20-5.60); RED CELL DISTRIBUTION WIDTH 16.1 % (11.5-14.5)
[2021-10-27 17:19] LABS: PRE OP HEMOGLOBIN 9.5 g/dL (12.0-16.0)
[2021-10-27 17:44] LABS: ALBUMIN 2.2 G/DL (3.4-5.0); ALBUMIN/GLOBULIN RATIO 0.5 (1.1-1.5); ALKALINE PHOSPHATASE 54 IU/L (46-116); BLOOD UREA NITROGEN 14 MG/DL (7-18); BUN/CREATININE RATIO 14.6 (6.6-38.0); CALCIUM 8.2 MG/DL (8.5-10.1); CHLORIDE 105 MMOL/L (99-107); CREATININE 0.96 MG/DL (0.40-0.90); PRE OP ALT 15 U/L (30-65); PRE OP ANION GAP 8 (8-16); PRE OP AST 35 U/L (10-37); PRE OP BILIRUB, TOTAL 0.5 MG/DL (0.0-1.0); PRE OP GLUCOSE 88 MG/DL (70-104); PRE OP POTASSIUM 4.1 MMOL/L (3.4-5.1); PRE OP SODIUM 141 MMOL/L (135-145); TOTAL CARBON DIOXIDE 28.3 MMOL/L (24-32); TOTAL PROTEIN 6.5 G/DL (6.4-8.2); eGFR 55 ML/MIN
[2021-10-28] VITALS (8 sets, daily range): BP systolic 131–178; BP diastolic 47–72
[~2021-10-28] VITALS: Ht 162.6 cm; Wt 83.0 kg
[~2021-10-28 11:03] MED LIST changes: -CHOL400T14 PO; +HYDR-3964 PO; -LEVO50TA8 PO; +LEVO75TA7 PO; -LISI5TAB22 PO; +ceFAZolin inj. 2,000 MG in dextrose 5%-water 100 ML IV ONE; +famotidine 20mg tablet PO ONE
[2021-10-28] MEDS ORDERED: LIDOcaine 1% W/epiNEPHrine 1:100,000 20ml vial ONE ×2 (12:12→12:53)
[2021-10-28] MEDS ORDERED: fentaNYL/PF 50MCG/1 ML 2ML syringe ONE (12:37)
[2021-10-28] MEDS ORDERED: midazolam 1 mg/ML 2ml injection ONE (12:38)
[2021-10-28] MEDS ORDERED: ketamine 50mg/5ml syringe ONE (12:40)
[2021-10-28] MEDS ORDERED: LIDOcaine 1% 30ml preserv. free vial ONE (12:49)
[2021-10-28] MEDS ORDERED: propofol inj 20 ML IV ONE (12:58)
--- NOTE | 2021-10-28 13:09 | NUR ---
Received from OR via [facility] , accompanied by Anesthesiologist: DR TRUJILLO and report given by Anesthesiolgist. VSS AND PACED. 20G IN LEFT WRIST. ABD DRESSING ACROSS FULL ABDOMEN. ON ROOM AIR BUT DESSATTING. ADDED CANNULA AT 2LITERS. SATTING AT 98% Addendum: 10/28/21 at 1333 by Emily Royal RN Amended: Links added.
[2021-10-28] MEDS ORDERED: morphine 2 MG/ML inj. syringe IV PRN (13:20)
[2021-10-28] MEDS ORDERED: ondansetron/PF 4mg/2ml inj IV PRN (13:20)
[2021-10-28] MEDS ORDERED: ringers solution, lacted 1,000 ML IV SCH (13:20)
[2021-10-28] MEDS ORDERED: hydrALAZINE 20mg/ml inj. IV PRN (14:05)
--- NOTE | 2021-10-28 14:19 | NUR ---
PATIENT MEETS DISCHARGE CRITERIA. VSS. PATIENT STATES NO PAIN. WENT OVER DISCHARGE INSTRUCTIONS WITH PATIENT AND GAVE THEM TO HER SON TO ALSO READ.
== END 2021-10-28 15:33 | disposition home or self-care (01) ==
LOC: PRE-OP 11:03
PROVIDERS: ATTEND Surgery
DX: R19.09 Other intra-abdominal and pelvic swelling, mass and lump (principal); C79.2 Secondary malignant neoplasm of skin; F41.9 Anxiety disorder, unspecified; I48.91 Unspecified atrial fibrillation; E78.5 Hyperlipidemia, unspecified; I10 Essential (primary) hypertension; F32.A Depression, unspecified; E66.9 Obesity, unspecified; Z68.31 Body mass index [BMI] 31.0-31.9, adult; Z88.5 Allergy status to narcotic agent; Z88.2 Allergy status to sulfonamides; Z91.09 Other allergy status, other than to drugs and biological substances; Z85.038 Personal history of other malignant neoplasm of large intestine; Z85.118 Personal history of other malignant neoplasm of bronchus and lung; Z87.891 Personal history of nicotine dependence; Z90.49 Acquired absence of other specified parts of digestive tract; Z90.710 Acquired absence of both cervix and uterus; Z98.890 Other specified postprocedural states; Z95.0 Presence of cardiac pacemaker; Z79.899 Other long term (current) drug therapy
CPT/HCPCS: 11602; 36415; 80053; 82948; 85025; 93005; A6223; J0360; J0690; J2250; J2270; J2704; J3010; J3490; J7030; J7060; J7120; Z7506; Z7512; 88307; A4215; A4615; A6253; A6258; A6449; A7000